=== PATIENT | female | born 1995 | race Caucasian/White ===

== ENCOUNTER 2021-07-12 11:25 | Emergency (ER) | payer OTHER, SELFPAY ==
[2021-07-12 11:30] VITALS: BP 153/87; PULSE 95; RESP 18; TEMP 36.9; O2SAT 98
[2021-07-12 11:52] LABS: Basophils Percent Auto 0.4 % (0.2-1.2); Eosinophils Absolute Auto 0.2 K/mm3 (0-0.3); Eosinophils Percent Auto 2.5 % (0-4.4); Hematocrit 37.9 % (37.0-47.0); Hemoglobin 13.5 g/dL (12.0-15.0); Immature Granulocyte Absolute 0.03 K/mm3 (0.00-0.031); Immature Granulocyte Percent A 0.4 % (0-0.5); Lymphocytes Absolute Auto 1.69 K/mm3 (0.9-3.2); Mean Corpuscular HGB Conc 35.6 g/dl (32-36); Mean Corpuscular Hemoglobin 31.2 pg (26-34); Mean Corpuscular Volume 87.5 fl (80-100); Mean Platelet Volume 9.5 fl (7.4-10.4); Monocytes Absolute Auto 0.5 K/mm3 (0.1-0.6); Monocytes Percent Auto 5.8 % (2.6-8.5); Neutrophils Absolute Auto 5.6 K/mm3 (1.3-6.7); Neutrophils Percent Auto 69.9 % (45.5-73.1); Platelet Count Result 274 k/mm3 (150-375); Red Blood Count 4.33 M/mm3 (4.2-5.4); Red Cell Distribution Width 13.8 % (11.5-14.5); White Blood Count 8.1 K/mm3 (4.5-10.0)
[2021-07-12 12:01] LABS: Alanine Aminotransferase 24 U/L (4-35); Albumin Level 4.4 g/dL (3.5-5.1); Alkaline Phosphatase 119 U/L (38-126); Anion Gap 13 mmol/L (8-16); Aspartate Amino Transferase 28 U/L (14-36); Bilirubin,Total 0.9 mg/dL (0.2-1.3); Blood Urea Nitrogen 5 mg/dL (7-17); Calcium 9.5 mg/dL (8.4-10.2); Carbon Dioxide 21 mmol/L (22-30); Chloride 102 mmol/L (98-107); Estimated CRCL calculation 168 ml/min; Estimated Glomerular Filt Rate > 60; Glucose 104 mg/dL (65-110); Lipase 274 U/L (23-300); Potassium 3.9 mmol/L (3.4-5.0); Sodium 136 mmol/L (137-145)
[2021-07-12 12:20] LABS: Add Urine Microscopic? YES; Appearance Urine Clear (Clear); Bacteria Urine Trace /hpf; Bilirubin Urine 1+ (Negative); Blood Urine Negative (Negative); Calcium Oxalate Crystals Urine Present /hpf; Color Urine Amber (Yellow); Glucose Urine UA Negative (Negative); Ketones Urine Negative (Negative); Leukocyte Esterase Ur 2+ LEU/UL (Negative); Mucus Urine Few /lpf; Nitrate Urine Negative (Negative); Protein Urine 1+ mg/dL (Negative); Squamous Epithelial Cell Urine Many /hpf (Few); WBC Urine 16-20 /hpf
[2021-07-12 12:35] LABS: Specific Grav Ur 1.033 (1.001-1.035)
[2021-07-12 13:40] VITALS: BP 136/86; PULSE 90; TEMP 36.9; O2SAT 98
[2021-07-12 15:20] VITALS: BP 131/82; PULSE 72; RESP 18; O2SAT 99
[2021-07-12] MEDS: METOCLOPRAMIDE HCL INJ 10 MG/2 ML VIAL IV PUSH (15:20)
[2021-07-12] MEDS: SODIUM CHLORIDE 0.9% IV 1,000 ML 999 ML IV CONT ×2 (15:20→16:33)
--- NOTE | 2021-07-12 16:54 | ED.GENADULT ---
HPI - General Adult General Chief complaint: Nausea/Vomiting/Diarrhea Stated complaint: 12 WKS PREG VOMITING Time Seen by Provider: 07/12/21 14:46 Source: patient Mode of arrival: ambulatory Limitations: no limitations History of Present Illness HPI narrative: Patient is obese presents for fluid hydration after going to her [facility] appointment. Patient saw Dr. Beltran who told her to come to the ER to be hydrated. Patient is 12 weeks . Patient has been prescribed Zofran and Reglan for her nausea and vomiting by her [facility]. Patient states she took Reglan this morning at 8 AM, but has not taken any additional medications. Patient denies any pain at this time. Patient denies any chest pain, shortness of breath, syncope or any other emergent symptoms. Related Data Allergies Allergy/AdvReac Type Severity Reaction Status Date / Time No Known Allergies Allergy Mild Unverified 07/12/21 14:43 Review of Systems Review of Systems: CONSTITUTIONAL: Denies fever, chills, or sweats. EYES: Denies visual changes, redness, or discharge. ENT: Denies rhinorrhea, congestion, sore throat, or otalgia. CARDIOVASCULAR: Denies chest pain, palpitations, or edema. RESPIRATORY: Denies cough or dyspnea. GASTROINTESTINAL: Reports nausea and vomiting denies abdominal pain or diarrhea. GENITOURINARY: Denies dysuria or hematuria. SKIN: Denies rash or itching. MUSCULOSKELETAL: Denies back pain, joint pain, or myalgia. NEUROLOGIC: Denies headache, numbness, dizziness, or weakness. PSYCHIATRIC: Denies anxiety or depression. [facility] Past Medical History Medical History (Updated 07/12/21 @ 17:00 by Larry Garcia PA-C) Dizziness Elevated alkaline phosphatase level Headache, migraine Heart murmur Hemorrhoids Miscarriage Post depression Rheumatic fever Severe major depression without psychotic features Family History Family History (Updated 07/20/18 @ 16:33 by DOCTOR UNKNOWN) Father Hypertension Social History Social History Smoking status: Never smoker Alcohol intake: current Exam Narrative: GENERAL: Well-appearing, well-nourished, and in no acute distress. Patient smiling and conversing appropriately. HEAD: Normocephalic, atraumatic. EYES: PERRLA and EOMI. ENT: Nares clear, no rhinorrhea or epistaxis. Mucous membranes mildly dry. Oropharynx without tonsillar hypertrophy exudate or other lesions. Bilateral TMs pearly chadwick nonbulging NECK: Supple. No adenopathy or masses. CHEST: Clear to auscultation. No respiratory distress. No wheezes rales or rhonchi HEART: Regular rate and rhythm. No murmur heard. Normal peripheral pulses. ABDOMEN: Soft, nontender, nondistended, normal active bowel sounds. EXTREMITIES: Normal range of motion. No edema. SKIN: Warm, dry, no rash. NEURO: No focal deficits. Alert and oriented x3. PSYCH: Normal mood and affect. Course Vital Signs Vital signs: Vital Signs Temperature 98.5 F 07/12/21 11:30 Pulse Rate 95 07/12/21 11:30 Respiratory Rate 18 07/12/21 11:30 Blood Pressure 153/87 H 07/12/21 11:30 Pulse Oximetry 98 07/12/21 11:30 Temperature 98.4 F 07/12/21 13:40 Pulse Rate 80 07/12/21 17:30 Respiratory Rate 18 07/12/21 17:30 Blood Pressure 138/72 07/12/21 17:30 Pulse Oximetry 99 07/12/21 17:30 Medical Decision Making MDM Narrative Medical decision making narrative: Patient has been prescribed Zofran and Reglan by her [facility]. Patient has been instructed to take her medications as instructed by her [facility] and follow-up as they have instructed. Patient was just at her [facility] for evaluation prior to coming to the ER and had normal findings. Patient is feeling baby move and is not having any vaginal bleeding or contraction-like symptoms. Patient is ready to be discharged home at this time. Vital Signs Vital Signs: Vital Signs Temperature 98.5 F 07/12/21 11:30 Pulse Rate 95 07/12/21 11:30 Respiratory Rate 18 07/12/21 11:3
[2021-07-12 17:30] VITALS: BP 138/72; PULSE 80; RESP 18; O2SAT 99
== END 2021-07-12 17:32 | disposition home or self-care (01) ==
PROVIDERS: Emergency Provider Emergency Medicine; PCP Internal Medicine
DX: O21.9 Vomiting of pregnancy, unspecified (principal); O23.11 Infections of bladder in pregnancy, first trimester; Z3A.12 12 weeks gestation of pregnancy
CPT/HCPCS: 36415; 80053; 81001; 81025; 83690; 85025; 87086; 87088; 96361; 96374; 96375; 99284; J2765; J7030

== ENCOUNTER 2022-01-05 04:01 | Inpatient (IN) | payer OTHER, SELFPAY ==
[2022-01-05] VITALS (27 sets, daily range): BP systolic 113–159; BP diastolic 71–94; PULSE 69–102; RESP 16; TEMP 36.5–37.1; O2SAT 97–100; BMI 44.3
--- OUTSIDE RECORDS SUMMARY | 2022-01-05 04:26 | XMS_ITS ---
:1995 Author Care Team Providers Name Role Phone CATHY GUDINO MD Primary Care Provider [phone] Allergies Code Code System Name Reaction Severity Status Onset NKDA ? Notes: Some allergies listed in Document: #[id number] could not be added to this patient's chart. Please review this docu ment and add these allergies to the patient's chart manually as needed. Medications Name Status Start Date Stop Date ? ? duloxetine 30 mg capsule,delayed release Completed ? 08/13/2021 TAKE 1 CAPSULE BY MOUTH DAILY ibuprofen 400 mg tablet Unknown ? Not avai lable Rema 250 mg/mL intramuscular oil Completed ? 06/15/2021 Inject 1 mL every week by intramuscular route as directed for 3 0 days. metoclopramide 10 mg tablet Completed ? 09/27 TAKE 1 TABLET BY MOUTH EVERY 6 HOURS nitrofurantoin monohydrate/macrocrystals 100 mg capsule Complete d ? 08/13/2021 TAKE ONE CAPSULE BY MOUTH EVERY 12 HOURS WITH A MEAL / FOOD olopatadine 0.2 % eye drops Completed ? 09/27 INSTILL 1 DROP IN BOTH EYES ONCE DAILY ondansetron HCl 4 mg tablet Completed ? 09/27 TAKE 2 TABLETS BY MOUTH EVERY 8 HOURS Ortho Tri-Cyclen (28) 0.18 mg(7)/0.215 mg(7)/0.25 mg(7)-35 m cg tablet Completed ? 06/15/2021 Take 1 tablet every day by oral route. oxycodone-acetaminophen 5 mg-325 mg Unknown ? Not available tablet 19 (with docusate) 29 mg iron-1 mg-25 mg tablet Unknown ? Not available Take 1 tablet by oral route. 28 mg i
--- OUTSIDE RECORDS SUMMARY | 2022-01-05 04:26 | XMS_ITS | Encounter Summary ---
:1995 Author Care Team Providers Name Role Phone Jordan Cardona MD Primary Care Provider [phone] Reason for Visit return OB visit Assessment and Plan 1. Routine care ? glucose tolerance test, ge [facility], 3-hour - 100G fasting ? HIV (1+2) Ab screen, serum ? hemoglobin + hematocrit, b lood Discussion Note: None recorded.Patient educational handouts: No information available. Plan of Care Reminders Provider Appointments None recorded. ? ? Lab Glucose [facility] Tolerance Test, 10/24/2021 Hospital (Lab) Gestational, 3-Hour ? HIV (1+2) Ab [facility] Screen, Serum 10/24/2021 Hospital (Lab) ? Hemoglobin + [facility] Hematocrit, Blood 10/24/2021 Hospital (Lab) Referral None recorded. ? ? Procedures None recorded. ? ? Surgeries None recorded. ? ? Imaging None recorded. ? ? Medications Name Start Date ? ? 28 mg iron-800 mcg tablet ? TAKE 1 TABLET BY MOUTH EVERY DAY Vitamins Plus Low Iron 27 mg iron-1 mg tablet ?
--- NOTE | 2022-01-05 04:58 | LDADM ---
This patient, Rosalina Olivares, was admitted to Labor/Delivery/Recovery 104 on 01/05/22 at 04:01. Plans for labor, pain management and were discussed with patient. Patient/family oriented to hospital policies and general routines including ID bracelet, bed and alarms, visiting hours, pain management, procedures, bathroom and other care routines, personal items, smoking policy, room service/diet and guest tray routines, infant security routines, and visiting hours. Patient/Family are encouraged to report perceived risks to care and to ask questions if they do not understand what they are told or what they should do. See [facility] for further documentation.
[2022-01-05 05:18] LABS: Basophils Percent Auto 0.3 % (0.2-1.2); Eosinophils Absolute Auto 0.2 K/mm3 (0-0.3); Eosinophils Percent Auto 1.8 % (0-4.4); Hematocrit 33.9 % (37.0-47.0); Hemoglobin 11.7 g/dL (12.0-15.0); Immature Granulocyte Absolute 0.11 K/mm3 (0.00-0.031); Immature Granulocyte Percent A 1.1 % (0-0.5); Lymphocytes Absolute Auto 2.11 K/mm3 (0.9-3.2); Lymphocytes Percent Auto 21.3 % (18.3-44.2); Mean Corpuscular HGB Conc 34.5 g/dl (32-36); Mean Corpuscular Hemoglobin 32.7 pg (26-34); Mean Corpuscular Volume 94.7 fl (80-100); Mean Platelet Volume 10.1 fl (7.4-10.4); Monocytes Absolute Auto 0.6 K/mm3 (0.1-0.6); Monocytes Percent Auto 5.9 % (2.6-8.5); Neutrophils Absolute Auto 6.9 K/mm3 (1.3-6.7); Neutrophils Percent Auto 69.6 % (45.5-73.1); Platelet Count Result 247 k/mm3 (150-375); Red Blood Count 3.58 M/mm3 (4.2-5.4); Red Cell Distribution Width 13.7 % (11.5-14.5); White Blood Count 9.9 K/mm3 (4.5-10.0)
[2022-01-05 07:54] LABS: Rapid Plasma Reagin Non-Reactive (NonReactive)
[2022-01-05] MEDS: LACTATED RINGERS 1,000 ML 125 ML IV CONT (08:58)
[2022-01-05] MEDS: OXYTOCIN 30 UNITS/NS 500 ML 30 UNITS/500 ML BAG IV CONT (08:58)
[2022-01-05 09:05] LABS: Alanine Aminotransferase 108 U/L (4-35); Albumin Level 3.6 g/dL (3.5-5.1); Alkaline Phosphatase 242 U/L (38-126); Anion Gap 8 mmol/L (8-16); Aspartate Amino Transferase 89 U/L (14-36); Bilirubin,Total 0.8 mg/dL (0.2-1.3); Blood Urea Nitrogen 6 mg/dL (7-17); Calcium 8.7 mg/dL (8.4-10.2); Carbon Dioxide 21 mmol/L (22-30); Chloride 106 mmol/L (98-107); Estimated CRCL calculation 149 ml/min; Estimated Glomerular Filt Rate > 60; Glucose 84 mg/dL (65-110); Potassium 3.5 mmol/L (3.4-5.0); Sodium 135 mmol/L (137-145); Uric Acid 5.7 mg/dL (2.5-7.5)
--- NOTE | 2022-01-05 10:31 | WPDOBADMIT ---
Obstetrics - Admit Note Admission Note: record reviewed. No pertinent additions to the history and/or any subsequent changes in the physical findings that are not consistent with the expected course of the were found. Additions to the history and/or subsequent changes in the physical findings follow. Here in labor with SROM at 36 6/7 wks. BP's elevated. No PIH sx. LFT's also elevated. Now 9/100/-2. Expectant mgmt.
--- NOTE | 2022-01-05 10:49 | PM.OBPRVD ---
OB - Delivery Note Procedure Delivery date: 01/05/22 Procedure: Events: Premature Rupture of Membranes (36 6/7) Induction method: None Delivery monitor: External FHT and External Uterine Route of delivery: Laceration Description: Superficial Specimen: Yes (placenta) Quantitative Blood Loss (ml): 100 Anesthesia type: None Disposition: Floor Baby Date of : 01/05/22 Weeks of gestation at delivery: 36 gender: Male presentation: vertex position: Right Occiput Anterior Placenta delivery description: Spontaneous Cord Vessel Description: 3 Vessels and Nuchal Cord score one minute: 9 score five minutes: 9
--- NOTE | 2022-01-05 10:51 | PM.OBDSVD ---
DS: Admitting Diagnosis Discharge Date 01/07/22 Admitting Diagnosis IUP 36 6/7 wks with PROM Labor PIH DS: Discharge Diagnosis Discharge Diagnosis (1) (normal spontaneous vaginal delivery): Code(s): O80 - Encounter for full-term uncomplicated delivery Status: Acute (2) PIH ( induced hypertension): Code(s): O13.9 - Gestational [-induced] hypertension without significant proteinuria, unspecified trimester Status: Acute OB - DS: Summary OB Procedures : Ultrasound OB Procedures Intrapartum: Spontaneous Vag Delivery OB Procedures: : None Peripartum Data Infant Delivery Method: Natural Vaginal Laceration Description: Superficial complications: none Status at Discharge Functional status at discharge: independent ambulation Overall status at discharge: patient is progressing back to baseline Time Spent with Patient Time attestation: Total time spent providing and/or coordinating discharge services: DS: Data Data Completed and Pending Labs on day of discharge: Labs from last 24 hours 01/05/22 01/05/22 01/05/22 08:44 05:07 05:07 WBC RBC Hgb Hct MCV MCH MCHC RDW Plt Count MPV Immature Gran % (Auto) Neut % (Auto) Lymph % (Auto) Butler % (Auto) Eos % (Auto) Baso % (Auto) Lymph # (Auto) Butler # (Auto) Eos # (Auto) Baso # (Auto) Abs Immat Gran (auto) Absolute Neuts (auto) Absolute Nucleated RBC Nucleated RBC % Sodium 135 L Potassium 3.5 Chloride 106 Carbon Dioxide 21 L Anion Gap 8 BUN 6 L Creatinine 0.60 L Estim Creat Clear Calc 149 Estimated GFR > 60 Glucose 84 Uric Acid 5.7 Calcium 8.7 Total Bilirubin 0.8 AST 89 H ALT 108 H Alkaline Phosphatase 242 H Total Protein 7.0 Albumin 3.6 RPR Non-reactive Blood Type B Positive Antibody Screen Negative 01/05/22 05:07 WBC 9.9 RBC 3.58 L Hgb 11.7 L Hct 33.9 L MCV 94.7 MCH 32.7 MCHC 34.5 RDW 13.7 Plt Count 247 MPV 10.1 Immature Gran % (Auto) 1.1 H Neut % (Auto) 69.6 Lymph % (Auto) 21.3 Butler % (Auto) 5.9 Eos % (Auto) 1.8 Baso % (Auto) 0.3 Lymph # (Auto) 2.11 Butler # (Auto) 0.6 Eos # (Auto) 0.2 Baso # (Auto) 0.0 Abs Immat Gran (auto) 0.11 H Absolute Neuts (auto) 6.9 H Absolute Nucleated RBC 0.0 Nucleated RBC % 0.0 Sodium Potassium Chloride Carbon Dioxide Anion Gap BUN Creatinine Estim Creat Clear Calc Estimated GFR Glucose Uric Acid Calcium Total Bilirubin AST ALT Alkaline Phosphatase Total Protein Albumin RPR Blood Type Antibody Screen Discharge Plan Discharge Attending physician on discharge: Seamus Amado Discharging Clinician: Seamus Amado Anticipated Discharge Date/Time: 01/07/22 10:52 Patient Disposition: Home, Self-Care Activity: may shower and pelvic rest Diet: regular Discharge Instructions: Education: Mom and Baby Guide Given to: Mother Follow-Up: Call your delivering provider's office for an appointment to be seen in: 1 Week Mom and baby should come to the [facility] for the follow-up appointment. Appointment Date/Time: January 08, 2022 at 10:00 am What to expect at your follow-up visit: Blood Pressure Check Physical Assessment Call [phone] if you are unable to keep your appointment time. BREAST CARE: * Wear a snug supportive bra. * For engorgement discomfort: B Bottle Feeding: * May apply ice packs * No stimulation to breasts, do not pump this will cause your body to produce more milk EPISIOTOMY/PERINEAL CARE: * Until bleeding stops, use your tomasa bottle after urinating * Change your pad frequently throughout the day * You may take sitz baths several times a day (fill your bathtub with warm water and soak for 20 minutes.) Do NOT bathe in the water * No tub baths until seen
[2022-01-05] MEDS: OXYTOCIN 30 UNITS/NS 500 ML 30 UNITS/500 ML BAG 125 UNITS IV CONT (11:26)
[2022-01-05] MEDS: WITCH HAZEL 40 PADS 1 PAD TOPICAL (12:12)
[2022-01-05] MEDS: IBUPROFEN 600 MG TABLET PO ×2 (12:12→17:52)
--- NOTE | 2022-01-05 14:14 | OBPPTRN ---
1314-Patient transferred to post room #284 via wheelchair. Support person present. Oriented to unit, room, information board, rooming in, admission packet and security measures. Patient verbalizes understanding.
[2022-01-05] MEDS: DOCUSATE SODIUM 100 MG CAPSULE PO (17:52)
--- NOTE | 2022-01-06 03:27 | PC.NURSE ---
01/06/2022 at 0200 Daylight Savings Time For Daylight Savings Time Beginning in the Spring - Clocks are moved ahead. For [facility], the time of change occurs at 0200 hrs. Time is taken from the windows server support technician. This entry on the patient's chart recognizes the change in time reflected during documentation. Example: 2 entries for vital signs may be charted for 0200 hrs.
[2022-01-06 04:30] VITALS: BP 142/84; PULSE 76; RESP 16; TEMP 36.2; O2SAT 99
[2022-01-06 04:58] LABS: Hematocrit 29.4 % (37.0-47.0); Hemoglobin 10.1 g/dL (12.0-15.0)
[2022-01-06 05:09] LABS: Alanine Aminotransferase 92 U/L (4-35); Alkaline Phosphatase 179 U/L (38-126); Anion Gap 6 mmol/L (8-16); Aspartate Amino Transferase 64 U/L (14-36); Bilirubin,Total 0.5 mg/dL (0.2-1.3); Blood Urea Nitrogen 8 mg/dL (7-17); Calcium 8.3 mg/dL (8.4-10.2); Carbon Dioxide 21 mmol/L (22-30); Chloride 110 mmol/L (98-107); Estimated CRCL calculation 149 ml/min; Estimated Glomerular Filt Rate > 60; Glucose 81 mg/dL (65-110); Potassium 3.6 mmol/L (3.4-5.0); Sodium 137 mmol/L (137-145); Uric Acid 5.1 mg/dL (2.5-7.5)
[2022-01-06 06:00] VITALS: BP 132/89; PULSE 76; RESP 16; TEMP 36.7; O2SAT 100
[2022-01-06] MEDS: IBUPROFEN 600 MG TABLET PO ×2 (07:01→16:30)
--- NOTE | 2022-01-06 09:27 | PM.OBPNVD ---
OB - PN: Subj Subjective Date/time seen: 01/06/22 09:27 Patient comments: no complaints, pain well controlled and other (No PIH sx) [place] baby status: doing well OB - PN: Obj Data Labs CBC & Chem 7: 01/06/22 04:33 01/06/22 04:33 Labs: Laboratory Results - last 24 hr 01/05/22 01/06/22 01/06/22 08:44 04:33 04:33 Hgb 10.1 L Hct 29.4 L Sodium 135 L 137 Potassium 3.5 3.6 Chloride 106 110 H Carbon Dioxide 21 L 21 L Anion Gap 8 6 L BUN 6 L 8 Creatinine 0.60 L 0.60 L Estim Creat Clear Calc 149 149 Estimated GFR > 60 > 60 Glucose 84 81 Uric Acid 5.7 5.1 Calcium 8.7 8.3 L Total Bilirubin 0.8 0.5 AST 89 H 64 H ALT 108 H 92 H Alkaline Phosphatase 242 H 179 H Total Protein 7.0 6.0 L Albumin 3.6 3.0 L OB - PN A/P Assessment and Plan (1) PIH ( induced hypertension): Code(s): O13.9 - Gestational [-induced] hypertension without significant proteinuria, unspecified trimester Status: Acute Assessment and Plan: BP stable. Labs improved. c/o generalized puritis so bile acids drawn Plan day: 1 Plan: routine care and other (labs improved. ) Time Spent With Patient Time: Total time spent is greater than 50% in coordination of care (as documented) at patient's floor/unit and/or counseling patient: Exam Narrative: No RUQ pain : Bimanual exam- vagina & uterus: other (Uterus firm, nt @U)
[2022-01-06 13:15] VITALS: BP 137/78; PULSE 77; RESP 16; TEMP 36.4; O2SAT 100
[2022-01-06 16:15] VITALS: BP 131/68; PULSE 83; RESP 16; TEMP 37.4; O2SAT 99
[2022-01-06] MEDS: DOCUSATE SODIUM 100 MG CAPSULE PO (16:30)
[2022-01-06] MEDS: TETANUS,DIPHTHERIA,AC PERTUSSIS ADULT (0.5 ML) BOOSTRIX IM (16:30)
--- NOTE | 2022-01-06 16:57 | PC.NURSE ---
Patient was given the opportunity to view the discharge video Mother & Baby Care, The First Two Weeks and to ask questions. Patient declined viewing the video and has been given the mother/baby guide for home reference.
[2022-01-06 19:30] VITALS: BP 142/89; PULSE 82; RESP 16; TEMP 36.7; O2SAT 100
[2022-01-07] MEDS: IBUPROFEN 600 MG TABLET PO ×2 (00:05→07:55)
[2022-01-07 00:06] VITALS: BP 141/87; PULSE 72; RESP 16; TEMP 36.6; O2SAT 98
[2022-01-07 04:05] VITALS: BP 123/78; PULSE 72; RESP 16; TEMP 36.6; O2SAT 100
[2022-01-07] MEDS: ACETAMINOPHEN 325 MG TABLET 650 MG PO (04:10)
[2022-01-07] MEDS: DOCUSATE SODIUM 100 MG CAPSULE PO (07:56)
[2022-01-07 08:20] VITALS: PULSE 72; RESP 16; O2SAT 100
[2022-01-07 08:30] VITALS: BP 132/74; PULSE 74; RESP 16; TEMP 36.1; O2SAT 99
--- NOTE | 2022-01-07 12:19 | PM.OBDSVD ---
DS: Admitting Diagnosis Discharge Date 01/07/2022 Admitting Diagnosis OB - DS: Summary OB Procedures : None OB Procedures Intrapartum: Spontaneous Vag Delivery OB Procedures: : None Time Spent with Patient Time attestation: Total time spent providing and/or coordinating discharge services: DS: Data Data Completed and Pending Pending studies at discharge: Pending at discharge 01/05/22 10:43 Surgical [PTH] Routine Discharge Plan Discharge Attending physician on discharge: Seamus Amado Discharging Clinician: Seamus Amado Anticipated Discharge Date/Time: 01/07/22 10:52 Patient Disposition: Home, Self-Care Activity: may shower and pelvic rest Diet: regular Discharge Instructions: Education: Mom and Baby Guide Given to: Mother Follow-Up: Call your delivering provider's office for an appointment to be seen in: 1 Week [facility]. Appointment Date/Time: January 08, 2022 at 10:00 am What to expect at your follow-up visit: Blood Pressure Check Physical Assessment Call [phone] if you are unable to keep your appointment time. BREAST CARE: * Wear a snug supportive bra. * For engorgement discomfort: B Bottle Feeding: * May apply ice packs * No stimulation to breasts, do not pump this will cause your body to produce more milk EPISIOTOMY/PERINEAL CARE: * Until bleeding stops, use your tomasa bottle after urinating * Change your pad frequently throughout the day * You may take sitz baths several times a day (fill your bathtub with warm water and soak for 20 minutes.) Do NOT bathe in the water * No tub baths until seen by your physician - You may shower ACTIVITY: * Rest as much as possible. * Do not exercise or lift anything heavier than your baby (such as laundry or other children.) * Avoid stairs or driving as much as possible. * Do not put anything into the vagina. No douching, tampons, or sexual activity until seen by physician. NOTIFY PHYSICIAN IF YOU HAVE ANY QUESTIONS OR IF ANY OF THE FOLLOWING SYMPTOMS OCCUR: * If your Vaginal area becomes red, swollen, or more painful than what you have experienced in the hospital. * If your vaginal bleeding becomes foul smelling. * If your vaginal bleeding becomes more heavy than a period or if your bleeding changes from pink to bright red. However, you may pass an occasional walnut-sized clot once or twice for the first week . * If you experience a sharp, shooting pain in your calves. * If you discover a hard, reddened area on your breast or if you experience flu-like symptoms. DIET: * Eat regular, well-balanced meals. * Drink plenty of fluids daily. Patient Instructions: Vaginal Delivery (DC) Stand Alone Forms: General Discharge Information Follow-up/Referrals: Seamus Amado MD [Physician] - 1 Week (For BP check) Discharge Medications: New ibuprofen 600 mg Tablet 600 mg PO Q6H PRN (Reason: Cramping) Qty: 30 RF: 0 Continued vit-iron fum-folic ac 65 mg iron- 1 mg tablet 1 tablet PO DAILY RF: 0 Discontinued progesterone micronized 200 mg capsule 200 mg PO QHS RF: 0 Date of admission: 01/05/22 04:01 Primary Care Provider: Jordan Cardona Admitting Provider: Seamus Amado Attending physician on admission: Seamus Amado Condition: Stable
[2022-01-08 11:12] VITALS: BP 137/81; PULSE 87; RESP 18; TEMP 36.7; O2SAT 98
[2022-01-16 16:40] LABS: Chenodeoxycholic Acid 0.6 umol/L (< OR = 3.9); Cholic Acid 3.2 umol/L (< OR = 2.8); Deoxycholic Acid <0.5 umol/L (< OR = 2.3); Total Bile Acids 3.8 umol/L (< OR = 8.3)
== END 2022-01-07 12:50 | disposition home or self-care (01) | DRG 807 ==
LOC: ANHLDR 10:53 → ANHOB2 14:20
PROVIDERS: Admitting Provider Obstetrics & Gynecology Gynecology; PCP Internal Medicine; Visit Provider Obstetrics & Gynecology
DX: O42.913 Preterm premature rupture of membranes, unspecified as to length of time between rupture and onset of labor, third trimester (principal); Z37.0 Single live birth; Z3A.36 36 weeks gestation of pregnancy; O62.3 Precipitate labor; O13.4 Gestational [pregnancy-induced] hypertension without significant proteinuria, complicating childbirth; O69.81X0 Labor and delivery complicated by cord around neck, without compression, not applicable or unspecified; O36.8330 Maternal care for abnormalities of the fetal heart rate or rhythm, third trimester, not applicable or unspecified
CPT/HCPCS: 36415; 80053; 82542; 84112; 84550; 85014; 85018; 85025; 86592; 86850; 86900; 86901; 88307; 90715; A9270; J2590; J7120